=== PATIENT | male | born 1980 | race Caucasian/White ===

== ENCOUNTER 2018-04-03 19:30 | Emergency (ER) | payer BC, OTHER ==
[2018-04-03] MEDS ORDERED: Lidocaine 1% 20 ML MDV INJECT ONE (19:59)
--- NOTE | 2018-04-03 20:02 | EDM.PDOC ---
ED HPI GENERAL MEDICAL PROBLEM - General Chief Complaint: Laceration Stated Complaint: LEFT MIDDLE FINGER CUT TIP OFF Time Seen by Provider: 04/03/18 19:52 Source of Information: Reports: Patient History Limitations: Reports: No Limitations - History of Present Illness INITIAL COMMENTS - FREE TEXT/NARRATIVE: Right handed patient was cutting some cucumbers tonight and accidentally cut the tip of his left long finger. Small flap noted, fair amount of bleeding comes in for evaluation. Patient denies any immune problems. Does have high blood pressure and is on medications. No other injury noted. His last tetanus is greater than 10 years. - Related Data Allergies Allergy/AdvReac Type Severity Reaction Status Date / Time No Known Allergies Allergy Verified 04/03/18 19:55 MDT Home Meds: Home Meds Losartan [Cozaar] 25 mg PO DAILY 04/03/18 [History] Modafinil 200 mg PO DAILY 04/03/18 [History] Past Medical History Cardiovascular History: Reports: Hypertension Social & Family History - Tobacco Use Smoking Status *Q: Never Smoker ED ROS GENERAL - Review of Systems Review Of Systems: See Below Musculoskeletal: Reports: Other (Pain in the left distal middle finger left hand ) Skin: Reports: Other (Avulsion laceration to the tip of the left middle finger) Neurological: Denies: Paresthesia, Tingling Psychiatric: Reports: No Symptoms ED EXAM, SKIN/RASH Exam: See Below Exam Limited By: No Limitations General Appearance: Alert, WD/WN, No Apparent Distress Peripheral Pulses: 2+: Radial (L) Extremities: Normal Capillary Refill Skin: Other (Avulsion laceration tip of the left middle finger that measures approximately 8 mm circumferentially circular shaped, there is some punctate subcutaneous tissue to the Center however it is pale in appearance. Underlying is just into the subcutaneous tissue, nose no bony involvement.) ED SKIN PROCEDURES - Laceration/Wound Repair Left Digit - 3rd (Middle) Appearance: Subcutaneous Distal NVT: Neuro & Vascular Intact, No Tendon Injury Anesthetic Type: Digital Local Anesthesia - Lidocaine (Xylocaine): 1% Plain Local Anesthetic Volume: 4cc Skin Prep: Saline, Sterile Drape Exploration/Debridement/Repair: Wound Explored, In a Bloodless Field, No Foreign Material Found Closed with: Sutures Suture Size: other (5-0) Suture Type: Silk, Interrupted (Wound edges well aligned, flap seems to hopefully be viable for the patient reviewed the risks benefits and alternatives prior to the procedure with the patient. Tube gauze dressing applied wound care instructions given and reviewed) Course - Vital Signs Last Recorded V/S: Last Vital Signs Temp 98.5 F 04/03/18 19:52 MDT Pulse 73 04/03/18 19:52 MDT Resp 16 04/03/18 19:52 MDT BP 133/71 04/03/18 19:52 MDT Pulse Ox 98 04/03/18 19:52 MDT - Orders/Labs/Meds Orders: Active Orders 24 hr Category Date Time Status Vaccines to be Administered [RC] PER UNIT ROUTINE Care 04/03/18 20:33 Active Meds: Medications Discontinued Medications Generic Name Dose Route Start Last Admin Trade Name Freq PRN Reason Stop Dose Admin Diphtheria/Tetanus/Acell Pertussis 0.5 ml 04/03/18 20:33 MDT 04/03/18 20:48 MDT Adacel IM 04/03/18 20:34 MDT 0.5 ml .ONCE ONE Administration Lidocaine HCl 20 ml 04/03/18 19:59 MDT Xylocaine 1% INJECT 04/03/18 20:00 MDT ONETIME ONE Lidocaine HCl Confirm 04/03/18 20:05 MDT Xylocaine 1% Administered 04/03/18 20:06 MDT Dose 10 ml .ROUTE .STK-MED ONE Lidocaine HCl 10 ml 04/03/18 20:07 MDT 04/03/18 20:37 MDT Xylocaine 1% INJECT 04/03/18 20:08 MDT 10 ml ONETIME ONE Administration Departure - Departure Time of Disposition: 20:35 Disposition: DC/Tfer W/I Hosp To Swing 61 Condition: Good Clinical Impression: Laceration of finger of left hand Qualifiers: Encounter type: initial encounter Finger: middle finger Damage to nail status: without damage Foreign body presence: without foreign body Qualified Code(s): S61.213A - Laceration without foreign body of left middle finger without damage to nail, initial encounter - Discharge Information *PRESCRIPTION DRUG MONITORING PROGRAM REVIEWED*: Not Applicable *COPY OF PRESCRIPTION DRUG MONITORING REPORT IN PATIENT ALIDA: Not Applicable Instructions: Laceration Care, Adult, Wound Care, Adult Referrals: Narcisa Clayton NP [Primary Care Provider] - Forms: ED Department Discharge Additional Instructions: Return in 7-10 days for suture removal. Return sooner however if increasing pain , redness, bleeding, pus, red streaks, worse - My Orders Last 24 Hours: My Active Orders 04/03/18 20:33 Vaccines to be Administered [RC] PER UNIT ROUTINE - Assessment/Plan Last 24 Hours: My Active Orders 04/03/18 20:33 Vaccines to be Administered [RC] PER UNIT ROUTINE
[2018-04-03] MEDS ORDERED: Lidocaine 1% 10 ML MDV ONE (20:05)
[2018-04-03] MEDS ORDERED: Lidocaine 1% 10 ML MDV INJECT ONE (20:07)
[2018-04-03] MEDS ORDERED: Diphtheria,Pertussis(Acell),Tetanus Vaccine 0.5 ML SDV IM ONE (20:33)
== END 2018-04-03 21:18 | disposition swing bed (61) ==
LOC: JD.ED 19:30
DX: S61.213A Laceration without foreign body of left middle finger without damage to nail, initial encounter (principal); Z79.899 Other long term (current) drug therapy; Z23 Encounter for immunization; I10 Essential (primary) hypertension; W45.8XXA Other foreign body or object entering through skin, initial encounter
CPT/HCPCS: 12001; 90471; 90715; 99283-25

== ENCOUNTER 2022-05-21 14:50 | Emergency (ER) | payer BC, OTHER ==
[2022-05-21] MEDS ORDERED: Sodium Chloride 0.9% 10 ML Syringe FLUSH PRN ×2 (14:52→15:25)
[2022-05-21] MEDS ORDERED: Iopamidol 612 MG/ML 100 ML Bottle IVPUSH ONE (15:25)
[2022-05-21 15:30] LABS: ESTIMATED GFR 97 mL/min (>60)
[2022-05-21] MEDS ORDERED: HYDROmorphone 1 MG/ML Syringe IVPUSH ONE (15:43)
== END 2022-05-21 18:20 | disposition home or self-care (01) ==
LOC: JD.ED 14:50
DX: S32.011A Stable burst fracture of first lumbar vertebra, initial encounter for closed fracture (principal); I10 Essential (primary) hypertension; Z79.899 Other long term (current) drug therapy; W18.39XA Other fall on same level, initial encounter
CPT/HCPCS: 36415; 70450; 71260; 72125; 74177; 80053; 80306; 80307; 83690; 85025; 96374; 99284; J1170; J3490; Q9967